=== PATIENT | female | born 1955 | race Caucasian/White ===

== ENCOUNTER 2021-11-19 21:21 | Emergency (ER) | payer MEDICARE, MEDICAID ==
[~2021-11-19] VITALS: Ht 167.6 cm; Wt 86.4 kg
[2021-11-20] MEDS ORDERED: morphine 10mg/ml inj. IM ONE (00:55)
[2021-11-20] MEDS ORDERED: nitroGLYCERIN 0.4mg/hour patch TD ONE (05:25)
[2021-11-20] MEDS ORDERED: enoxaparin 100mg/ml syringe SUBCUT ONE (05:25)
--- NOTE | 2021-11-20 05:33 | NUR ---
PATIENT REQUESTING MORE PAIN MEDICATION AFTER AWAKENING FROM RESTING WITH EYES CLOSED COMFORTABLY FOR APPROX 2 HOURS. NOTIFIED ED PHYSICIAN. AWAITING ORDERS.
--- NOTE | 2021-11-20 06:50 | NUR ---
Assumed patient care at this time. Patient sitting on chair by bedside.
[2021-11-20 07:04] VITALS: BP 120/68
[2021-11-20] MEDS ORDERED: HYDR-3965 PO (07:18)
[2021-11-20] MEDS ORDERED: HYDROcodone/acetaminophen 5mg/325mg tablet PO ONE (07:20)
--- NOTE | 2021-11-20 07:35 | NUR ---
Patient states she wants to leave, she states she has been waiting for so long for radiology result. Patient informed of risk leaving with a final diagnosis, pt verbalizes an understanding. Patient states she still wants to proceed to leave. MD and patient signed AMA form.
== END 2021-11-20 08:10 | disposition left against medical advice (07) ==
LOC: ER 21:22
DX: S22.41XA Multiple fractures of ribs, right side, initial encounter for closed fracture (principal); S80.812A Abrasion, left lower leg, initial encounter; S80.811A Abrasion, right lower leg, initial encounter; R07.81 Pleurodynia; M25.571 Pain in right ankle and joints of right foot; M79.671 Pain in right foot; E11.9 Type 2 diabetes mellitus without complications; F17.200 Nicotine dependence, unspecified, uncomplicated; Z87.442 Personal history of urinary calculi; Z90.710 Acquired absence of both cervix and uterus; Z79.899 Other long term (current) drug therapy; W19.XXXA Unspecified fall, initial encounter; Y93.89 Activity, other specified; Y92.89 Other specified places as the place of occurrence of the external cause; Y99.8 Other external cause status
CPT/HCPCS: 71045; 71250; 73610; 74176; 96372; 99285; J2274

== ENCOUNTER 2022-07-28 07:00 | Day surgery (SDC) | payer MEDICARE, MEDICAID ==
[~2022-07-28] VITALS: Ht 170.2 cm; Wt 82.3 kg
[2022-07-28] MEDS ORDERED: normal saline 1000ml 1,000 ML IV PRN (07:40)
[2022-07-28] MEDS ORDERED: METF-438 PO (07:43)
[2022-07-28] MEDS ORDERED: PARO-153 PO (07:50)
[2022-07-28] MEDS ORDERED: GLIM1TAB PO (07:50)
[2022-07-28] MEDS ORDERED: DOCU-21 PO (07:51)
[2022-07-28] MEDS ORDERED: IBUPROFEN 200 MG (07:52)
[2022-07-28] MEDS ORDERED: MORP15TA PO (07:52)
[2022-07-28] MEDS ORDERED: chemotherapy (07:53)
[2022-07-28] MEDS ORDERED: LIDOcaine 1% 30ml preserv. free vial SQ STA (07:59)
[2022-07-28 08:00] VITALS: BP 110/71
[2022-07-28] MEDS ORDERED: heparin sodium, porcine/PF 100unit/ml 5ML syringe ONE (08:37)
--- NOTE | 2022-07-28 09:13 | NUR ---
Patient seen in Short Stay with right sided chest port. Patient's port had flipped which was confirmed with palpation. Joie PEREZ anesthetized the area with Lidocaine 1%, patient placed on right side and port manipulated by IR RN. Patient then placed on back, using sterile procedure port accessed with 20G Nelson Needle. Site dressed with small amount of tension on nelson to support proper placement of port. Patient instructed to keep site clean and dry and to leave the port accessed until she follows up with Joie Mahoney at [facility] next 08/03.
== END 2022-07-28 09:00 | disposition home or self-care (01) ==
LOC: SSTAY O 07:00
PROVIDERS: ATTEND Radiology Vascular & Interventional Radiology
DX: T82.524A Displacement of infusion catheter, initial encounter (principal); C77.5 Secondary and unspecified malignant neoplasm of intrapelvic lymph nodes; G89.3 Neoplasm related pain (acute) (chronic); Y83.8 Other surgical procedures as the cause of abnormal reaction of the patient, or of later complication, without mention of misadventure at the time of the procedure; Y92.89 Other specified places as the place of occurrence of the external cause
CPT/HCPCS: 36597; J1642; J3490; A6258; A6449